=== PATIENT | female | born 1950 | race Caucasian/White ===

== ENCOUNTER 2016-12-24 06:21 | Day surgery (SDC) | payer MEDICARE, OTHER ==
--- NOTE | ~2016-12-24 | EGD ---
EGD REPORT [facility] [address] [id number] NAME: SHEA SPARKS : [birth year] STATUS : REG [facility] PAT#: [id number] AGE: 66 ADM/REG DATE : 12/24/16 MR#: [id number] REPORT SERV DATE: 12/24/16 DICTATED BY: JUNIOR MORAN DATE: 12/24/16 REPORT STATUS : Draft TRANSCRIBED BY: [employer] DATE: 12/24/16 [facility] Center Patient Name: Shea Sparks Date of : 1950 Attending MD: JUNIOR MORAN MD Procedure Date No Time: 12/24/2016 Procedure: Colonoscopy Indications: Screening for colorectal malignant neoplasm Referring MD: CLOVIS EDEN MD Medicines: as per anesthesia Complications: No immediate complications. Procedure: Pre-Anesthesia Assessment: - ASA Grade Assessment: III - A patient with severe systemic disease. After I obtained informed consent, the scope was passed under direct vision. Throughout the procedure, the patient's blood pressure, pulse, and oxygen saturations were monitored continuously. The PCF [id number] was introduced through the anus and advanced to the cecum, identified by appendiceal orifice and ileocecal valve. The colonoscopy was performed without difficulty. The patient tolerated the procedure. The quality of the bowel preparation was adequate to identify polyps. Findings: The perianal and digital rectal examinations were normal. A few small-mouthed diverticula were found in the sigmoid colon. Internal hemorrhoids were found during endoscopy and were mild. Impression: - Diverticulosis in the sigmoid colon. - Internal hemorrhoids. Recommendation: - Repeat colonoscopy in 10 years for surveillance. Procedure Code(s): --- Professional --- 32615, Colonoscopy, flexible, proximal to splenic flexure; diagnostic, with or without collection of specimen(s) by brushing or washing, with or without colon decompression (separate procedure) Diagnosis Code(s): --- Professional --- K64.8, Other hemorrhoids K57.30, Diverticulosis of large intestine without perforation or abscess without bleeding Z12.11, Encounter for screening for malignant neoplasm EGD REPORT [facility] [address] [id number] NAME: SHEA SPARKS : [birth year] STATUS : REG [facility] PAT#: [id number] AGE: 66 ADM/REG DATE : 12/24/16 MR#: [id number] REPORT SERV DATE: 12/24/16 DICTATED BY: JUNIOR MORAN. DATE: 12/24/16 REPORT STATUS : Draft TRANSCRIBED BY: [employer] DATE: 12/24/16 of colon CPT copyright 2013 [employer]. All rights reserved. The codes documented in this report are preliminary and upon business analytics intern review may be revised to meet current compliance requirements. JUNIOR MORAN MD 12/24/2016 8:52 AM This report has been signed electronically. Number of Addenda: 0 Note Initiated On: 12/24/2016 8:29 AM Scope Withdrawal Time 0 hours 6 minutes 12 seconds [id number] [id number]
[~2016-12-24 06:21] MED LIST: ASAB PO; AVALIDE; BYETTA10 SC; FISH OIL PO; FORTAMET500 MG PO; HYZAAR 100/25 T1 TAB PO; LANTUS SC; LEVOTHYROXIN100 MCG PO; LOTREL1 CAP PO; METFORMIN; NAPRELAN500 MG PO; PR25 PO; PRAVACHOL40 MG PO; PRILOSEC40 MG PO; STARLIX; STARLIX120 PO; SYN88 PO; TRESIBA FL200 UNIT/1 SC; TRULICITY0.75 MG/0. SQ; VITAMIN B-121000 MC1 SL; VITAMIN D
== END 2016-12-24 23:59 | disposition home or self-care (01) ==
LOC: DMU 06:21
PROVIDERS: Internal Medicine Gastroenterology
PROC: 0DJD8ZZ Inspection of Lower Intestinal Tract, Via Natural or Artificial Opening Endoscopic (ICD-10-PCS; principal; 2016-12-24 08:00)
DX: Z12.11 Encounter for screening for malignant neoplasm of colon (principal); K64.8 Other hemorrhoids; K57.30 Diverticulosis of large intestine without perforation or abscess without bleeding; I10 Essential (primary) hypertension; K21.9 Gastro-esophageal reflux disease without esophagitis; E11.9 Type 2 diabetes mellitus without complications; E03.9 Hypothyroidism, unspecified; G57.82 Other specified mononeuropathies of left lower limb; Z98.890 Other specified postprocedural states; Z79.899 Other long term (current) drug therapy; Z79.84 Long term (current) use of oral hypoglycemic drugs; Z79.82 Long term (current) use of aspirin; Z79.4 Long term (current) use of insulin
CPT/HCPCS: 82962